=== PATIENT | male | born 1960 | race Caucasian/White ===

== ENCOUNTER 2022-02-19 09:29 | Inpatient (IN) | payer OTHER, SELFPAY ==
[2022-02-19] VITALS (25 sets, daily range): BP systolic 129–168; BP diastolic 56–85; PULSE 81–107; RESP 12–21; TEMP 36.1–39.1; O2SAT 88–100; BMI 29.5
--- NOTE | 2022-02-19 09:50 | EX.PCM.CONCC ---
Assessment & Plan Assessment/Plan (1) Acute respiratory failure with hypoxia: (2) Missed dialysis: (3) Hypertension: PLAN: Plan RECOMMENDATIONS: 1. Consult nephrology for urgent dialysis 2. Attempt removal of BiPAP after fluid removal 3. Consider panculture if unresponsive to fluid removal or develops fever/hypotension 4. Attempt to confirm baseline medications and medical history 5. Walking oximetry prior to discharge IMPRESSIONS: 1. Acute hypoxic respiratory failure Clinical suspicion for flash pulmonary edema secondary to accelerated hypertensive emergency secondary to lack of hemodialysis. Patient is reporting almost 5 days since his last dialysis. Patient does not have significant EKG changes at this time, but does require urgent dialysis secondary to his fluid status. Will attempt to discontinue BiPAP after fluid is removed. If patient were to develop fever, hypotension or was not responsive to fluid removal then empiric antibiotics with vancomycin should be considered given mild erythema at the site. That being said, dialysis site does not appear to be acutely infected in my opinion. CTA of the chest is highly suggestive of fluid overload as an etiology. 2. End-stage renal disease with noncompliance Patient appears to be relatively new to end-stage renal disease. Patient with extended periods between dialysis sessions. Given that he is out of state, echo nephrology will be consulted for dialysis recommendations. No indication for aggressive therapy of hyperkalemia given lack of EKG changes and need for urgent dialysis for other reasons. 3. Hypertension/hyperlipidemia/GERD/history of noncompliance Complicates care, management, recovery and prognosis. Okay to continue baseline medications from my perspective. HPI Consult Data Date of Consult: 02/19/22 HPI Narrative Reason for Consultation: Respiratory failure HPI Narrative: SHRUTHI HERR is a 61 M, with past medical history listed below, who presents as a transfer from [facility] secondary to a need for urgent dialysis. Patient had reportedly presented to their ER complaining of shortness of breath, cough and reported altered mental status. Patient is reportedly from out of state and was supposed to have dialysis in [place]. There were issues preventing this from happening. Patient reported that his last full dialysis was February 14. At the outside facility, patient had an extensive work-up including an EKG showed a sinus tachycardia with left atrial enlargement. Outside ER did document significant hypertension of 170s over 100. Patient was given albuterol, Levaquin, calcium and a 500 cc bolus. Laboratory work-up at the outside facility showed a white blood cell count of 16.2, hemoglobin of 10.5 and platelets of 267. Chemistries were significant for a sodium of 128, chloride of 91, bicarb of 19 and a creatinine of 9.4. Glucose was elevated at 247. ABG showed a pH of 7.29 with a PCO2 of 45 and a PO2 of 83 on BiPAP. COVID testing was negative. Coagulation studies were within normal limits. Patient subsequently had a CTA of the chest showing no PE but diffuse bilateral groundglass opacities with increased intralobular septal thickening and bilateral pleural effusions. This was personally reviewed using the disc provided in transfer. On arrival to the intensive care unit, patient states he felt subjectively much improved compared to previous. Patient was on BiPAP therapy and tolerating this well. Patient is a very poor historian and unable to provide much additional information. Patient reportedly is from out of state and had reportedly arranged for dialysis to be completed in [place]. This did not happen. Patient states since last dialysis was completed almost a week ago. In discussing patient's dialysis, he states he typically gets it Wednesday and Wednesday, but sounded surprised when it was asked if he gets dialysis on Fridays. Patient is not able to provide much information about his home medications outside of the ones provided. Patient was able to tell me that he recently had his dialysis access change secondary to a bloodstream infection. Patient thought that his site looked improved. Review of systems otherwise negative from a constitutional, HEENT, respiratory, cardiovascular, GI, genitourinary, musculoskeletal, skin, neurologic, psychiatric and hematologic system unless stated above. [facility] Medical History Diabetes Dialysis patient Hypertension Kidney disease Non-smoker Home Medications amlodipine 10 mg tablet 10 mg PO DAILY BP 02/19/22 [History Last Taken Unknown] atorvastatin 80 mg tablet 80 mg PO QHS cholesterol 02/19/22 [History Last Taken Unknown] carvedilol 12.5 mg tablet 12.5 mg PO BID BP 02/19/22 [History Last Taken Unknown] citalopram 20 mg tablet 20 mg PO DAILY depression 02/19/22 [History Last Taken Unknown] pantoprazole 40 mg tablet,delayed release 40 mg PO DAILY stomach 02/19/22 [History Last Taken Unknown] Allergy/AdvReac Type Severity Reaction Status Date / Time No Known Allergies Allergy Verified 02/19/22 09:32 Social History Smoking Status: Never smoker ROS ROS Narrative Difficult to obtain a review of systems given patient's poor insight. Review of systems otherwise negative from a constitutional, HEENT, respiratory, cardiovascular, GI, genitourinary, musculoskeletal, skin, neurologic, psychiatric and hematologic system unless stated above. Physical Exam Const alert, oriented x3 and no apparent distress Constitutional Narrative: On BiPAP. Appears older than stated age. General Appearance: cooperative and well developed; Negative for lethargic or ill appearing HEENT normocephalic, head/scalp atraumatic and moist oral mucous membranes Eyes PERRL and EOMs intact bilaterally Eyes Narrative: Slight scleral injection noted Neck full ROM and no lymphadenopathy Chest inspection of chest normal Chest Narrative: Right dialysis access subclavian. Slight erythema without exudate or purulence Resp normal respiratory effort and no use of accessory muscles Resp Narrative: On BiPAP during my evaluation Effort and Inspection: tachypneic Auscultation: rales; Negative for rhonchi or wheezes Percussion: Negative for dullness Cardio regular rate, regular rhythm, S1 normal heart sound, S2 normal heart sound, no murmurs, no rub and no gallops GI normal to inspection, nondistended, normoactive bowel sounds no CVA tenderness Extremity no clubbing, cyanosis or edema Skin no rashes or lesions noted Neuro oriented x3, CN's II-XII intact bilaterally, moves all extremities and no focal motor deficits Psych cooperative and affect normal Medical Records Data Attestation: I reviewed the patient's medical records Medical records narrative: Approximately 40 pages of documentation were reviewed from outside facility. Summarized in HPI Lab / Micro Data Attestation: I reviewed the patient's lab results. Lab results narrative: Repeat labs have been ordered Labs: COVID and influenza negative Rhythm Strip Rhythm Strip: Sinus Rhythm Rate: 81 Ectopy: None Charges/Coding Visit Charges Inpatient E&M: 39854 Init Hosp L3
[2022-02-19 11:02] LABS: Absolute Lymphocyte Count 1.36 X10^3/uL (0.83-4.51); Absolute Neutrophil Count 5.7 X10^3/uL (2.0-7.7); Basophil# 0.03 X10^3/uL; Basophil% 0.4 % (0-1); Eosinophil# 0.01 X10^3/uL; Eosinophils% 0.1 % (0-5); Hematocrit 24.8 % (40-54); Hemoglobin 7.8 g/dL (13.0-16.5); Lymphocyte # 1.36 X10^3/ul (0.83-4.51); Lymphocyte % 16.4 % (19-41); Mean Corp Hgb Conc 31.5 g/dL (32-36); Mean Corpuscular Hgb 29.1 pg (27.0-32.0); Mean Corpuscular Volume 92.5 fL (80-94); Mean Platelet Vol. 8.9 fl (6.2-12.0); Monocyte% 14.4 % (0-10); NRBC Flagged by Analyzer 0 % (0-5); Neutrophil # 5.65 X10^3/uL (2.7-7.7); Platelet Count 163 K/mm3 (150-450); RBC Distribution Width CV 14.9 % (11.6-14.6); RBC Distribution Width SD 50.5 fl (35.1-43.9); Red Blood Count 2.68 M/mm3 (4.6-6.2); White Blood Count 8.3 K/mm3 (4.4-11.0)
--- NOTE | 2022-02-19 11:22 | PCM.CONS.R ---
Assessment & Plan Assessment/Plan (1) ESRD (end stage renal disease): (2) Acute respiratory failure with hypoxia: (3) Hypertension: PLAN: Plan Patient presented to [place] emergency room with complaints of shortness of breath and needing dialysis. He has a history of end-stage renal disease on dialysis Wednesday, last dialyzed Wednesday. Lab work in the emergency room showed a potassium of 5.0, white count 16.2, creatinine 9.4, bicarb 19. Patient was initially placed on BiPAP. His breathing has improved he is now on nasal cannula. CTA of chest showing bilateral pleural effusions and concerning for possible pneumonia; patient received Levaquin. Patient was transferred to [facility] for dialysis. Patient has mild hyperkalemia, mild metabolic acidosis and hypervolemia likely from missing dialysis. We will plan for dialysis today over 4 hours on 2K bath and attempt fluid removal as patient/blood pressure tolerates. Patient does report that recently he had a tunneled catheter line infection, tunneled catheter was removed and new tunneled catheter has been placed. Patient reports he has been receiving antibiotic at his home dialysis unit postdialysis, he does not recall name of antibiotic that he has been receiving. We will give 1 dose Vanco post-dialysis today and draw blood cultures from tunneled HD catheter. Home medications are being ordered. Blood pressures acceptable. We will evaluate tomorrow for dialysis needs. Further orders forthcoming as hospitalization evolves. HPI Consult Data Date of Consult: 02/19/22 HPI Narrative HPI Narrative: SHRUTHI HERR, is a 61 M with past medical history significant for diabetes mellitus type 2, hypertension and end-stage renal disease who is on hemodialysis support who presented to [place] emergency room this morning with complaints of shortness of breath and the need for dialysis. Patient lives out of state in [place]. He receives dialysis on a Wednesday schedule in [place]. Per patient, his last dialysis was on Wednesday. He has been visiting family in [place]. Per patient he thought dialysis was arranged in [place] however he has not had dialysis since Wednesday at his home unit. Patient denies any recent fever or chills. Denies any nausea or vomiting. Does complain of shortness of breath with cough. [facility] Medical History Diabetes Dialysis patient Hypertension Kidney disease Non-smoker Home Medications amlodipine 10 mg tablet 10 mg PO DAILY BP 02/19/22 [History Last Taken Unknown] atorvastatin 80 mg tablet 80 mg PO QHS cholesterol 02/19/22 [History Last Taken Unknown] carvedilol 12.5 mg tablet 12.5 mg PO BID BP 02/19/22 [History Last Taken Unknown] citalopram 20 mg tablet 20 mg PO DAILY depression 02/19/22 [History Last Taken Unknown] pantoprazole 40 mg tablet,delayed release 40 mg PO DAILY stomach 02/19/22 [History Last Taken Unknown] Allergy/AdvReac Type Severity Reaction Status Date / Time No Known Allergies Allergy Verified 02/19/22 09:32 Social History Smoking Status: Never smoker ROS ROS Narrative As per past medical history and HPI Physical Exam Narrative Const: Alert and oriented x3, in no apparent distress HEENT: Pupils equal round reactive to light, oral mucosa moist Cardio: S1, S2, RRR Respiratory: Lung sounds clear anteriorly, currently on nasal cannula. No audible wheezing. Faint rales posteriorly Extremities: No pitting edema to right leg. Left leg prosthesis in place Tunneled HD catheter right chest, dressing clean, dry and intact Lab / Micro Data Result Diagrams: 02/19/22 10:55 02/19/22 10:55 Labs: Laboratory Results - last 24 hr 02/19/22 10:55: WBC 8.3, RBC 2.68 L, Hgb 7.8 L, Hct 24.8 L, MCV 92.5, MCH 29.1, MCHC 31.5 L, RDW Std Deviation 50.5 H, RDW Coeff of Jeffery 14.9 H, Plt Count 163, MPV 8.9, Immature Gran % (Auto) 0.700, Neut % (Auto) 68.0, Lymph % (Auto) 16.4 L, [place] % (Auto) 14.4 H, Eos % (Auto) 0.1, Baso % (Auto) 0.4, Absolute Neuts (auto) 5.7, Absolute Lymphs (auto) 1.36, Nucleated RBC % 0 Rhythm Strip Rhythm Strip: Sinus Rhythm Rate: 81 Ectopy: None
[2022-02-19 11:28] LABS: Albumin, Serum 2.5 g/dL (3.2-5.0); BUN 76 mg/dL (7-18); BUN/Creat Ratio 8.5 RATIO (10-20); Calcium,Total 7.7 mg/dL (8.5-10.1); Chloride 98 mmol/L (98-107); Creatinine, Serum 8.94 mg/dL (0.70-1.30); EST Glomerular Filtration Rate 6 mL/min (>60); Est Glom Filt Rate - Afr Amer 8 mL/min (>60); Estimated Creatinine Clearance 9.28 ml/min; Glucose 128 mg/dL (74-106); Phosphorus 6.9 mg/dL (2.5-4.9); Potassium 4.4 mmol/L (3.5-5.1); Sodium Level 131 mmol/L (136-145)
--- NOTE | 2022-02-19 12:09 | HP.PCM.HOS_ITS ---
HPI - General General Date of Admission: 02/19/22 Date of Service: 02/19/22 Chief Complaint: SOB- 2 days HPI Narrative SHRUTHI HERR, is a 61 M who presents with the above. Patient is visiting from [place]. He has ESRD on hemodialysis(). Patient missed his dialysis on Wednesday. He is due to go back to [place] today and for get that he will will be okay missing a couple of days of dialysis. He however became very short of breath and felt wheezy yesterday. He admits to a cough and was said to be confused. Patient was supposed to be set-up in [place] for dialysis but never went through with it. He last had his full dialysis on February 14. In [facility], patient's blood pressure was elevated over 170s. EKG showed sinus tachycardia with left atrial enlargement. His sodium was 128, potassium 5, bicarb 19, chloride 91, creatinine 9.4. Blood sugar was 247. ABG showed pH of 7.29, PCO2 45, PO2 83. COVID test was negative. CT of the chest was negative for acute PE. It showed diffuse bilateral groundglass opacities with increased intralobular septal thickening and pleural effusion. Patient received Kayexalate, insulin, calcium gluconate. He was managed on BiPAP continuously. Patient was transferred to the [facility] ICU. In the ICU, he was found to have improved and saturating well on 4 L of oxygen. Patient denied any fever or chills or chest pain or dizziness or palpitation. His vitals showed blood pressure 135/68, heart rate 89, temperature 90 7F, SPO2 was 92% on 3 L of oxygen. His WBC count was 8.3, hemoglobin 7.8, platelet count 163, sodium was 131, potassium 4.4, chloride 98, bicarbonate 20, BUN 76, creatinine 8.94, phosphorus 6.9, albumin 2.5 Nephrology was consulted and the nephrology SERVER SOFTWARE ENGINEER found out that patient had a recent line infection and was supposed to be on cefazolin 2 g IV after dialysis on Tuesdays and and 3 g cefazolin after dialysis on Wednesday. [facility] Medical History Diabetes Dialysis patient Hypertension Kidney disease Non-smoker Home Medications amlodipine 10 mg tablet 10 mg PO DAILY BP 02/19/22 [History Last Taken Unknown] atorvastatin 80 mg tablet 80 mg PO QHS cholesterol 02/19/22 [History Last Taken Unknown] carvedilol 12.5 mg tablet 12.5 mg PO BID BP 02/19/22 [History Last Taken Unknown] citalopram 20 mg tablet 20 mg PO DAILY depression 02/19/22 [History Last Taken Unknown] pantoprazole 40 mg tablet,delayed release 40 mg PO DAILY stomach 02/19/22 [History Last Taken Unknown] Allergy/AdvReac Type Severity Reaction Status Date / Time No Known Allergies Allergy Verified 02/19/22 09:32 Family History (Updated 02/19/22 @ 12:[address] Breanna Neal MD) Mother No problems noted. Father Colon cancer Surgical History (Updated 02/19/22 @ 12:[address] Breanna Neal MD) S/P BKA (below knee amputation) unilateral Social History (Updated 02/19/22 @ 12:[address] Breanna Neal MD) household members: spouse Smoking Status: Never smoker alcohol intake: current substance use type: does not use ROS ROS Narrative Constitutional: Reports: Malaise, Weakness, Fatigue. Denies: Anorexia, Chills, Fever, Night Sweats, Weight Change Eyes: Denies: Blurred vision, Cataracts, Conjunctivae Inflammation, Pain, Redness, Vision Change HEENT: Denies: Difficulty Hearing, Difficulty Swallowing, Head Aches, Hearing Changes, Sinus Congestion, Sinus Drainage Cardiovascular: Denies: Chest Pain, Orthopnea, Palpitations Respiratory: Admits to cough, Shortness of breath at rest, Sputum production Gastrointestinal: Denies: Abdominal Pain, Nausea, Vomiting Genitourinary: Denies: Dysuria Musculoskeletal: Denies: Joint Pain, Joint stiffness, Joint swelling, Joint Tenderness Skin: Denies: Rash, Wounds Neurological: Denies: Numbness, Tingling, Focal weakness Vital Signs Vital Signs Vital Signs: 02/19/22 09:56 02/19/22 09:19 02/19/22 09:19 Temperature 98.1 F Temperature Source Temporal Pulse Rate 83 81 Respiratory Rate 21 H Respiratory Effort Respiratory Depth Respiratory Pattern Tachypnea Blood Pressure 140/85 H Blood Pressure [BP] Blood Pressure Mean 103 Blood Pressure Mean [BP] Blood Pressure Source Monitor Blood Pressure Source [BP] Blood Pressure Position Semi-Fowlers Blood Pressure Position [BP] Blood Pressure Location Left Arm Blood Pressure Location [BP] Pulse Ox 100 100 Oxygen Delivery Method Bi-pap Oxygen Flow Rate (L/min) Fraction of Inspired Oxygen (FIO2) 50 30 02/19/22 09:30 02/19/22 09:45 02/19/22 10:00 Temperature Temperature Source Pulse Rate 87 84 82 Respiratory Rate 21 H 18 18 Respiratory Effort Respiratory Depth Respiratory Pattern Blood Pressure 148/76 H 140/69 H 136/70 H Blood Pressure [BP] Blood Pressure Mean 100 92 92 Blood Pressure Mean [BP] Blood Pressure Source Monitor Monitor Monitor Blood Pressure Source [BP] Blood Pressure Position Semi-Fowlers Semi-Fowlers Semi-Fowlers Blood Pressure Position [BP] Blood Pressure Location Left Arm Left Arm Left Arm Blood Pressure Location [BP] Pulse Ox 91 92 94 Oxygen Delivery Method Nasal Cannula Nasal Cannula Nasal Cannula Oxygen Flow Rate (L/min) 3 4 4 Fraction of Inspired Oxygen (FIO2) 02/19/22 10:00 02/19/22 10:30 02/19/22 09:20 Temperature Temperature Source Pulse Rate 81 Respiratory Rate 16 Respiratory Effort Normal Non-Labored Respiratory Depth Normal Respiratory Pattern Normal Blood Pressure Blood Pressure [BP] 137/68 H Blood Pressure Mean Blood Pressure Mean [BP] 91 Blood Pressure Source Blood Pressure Source [BP] Monitor Blood Pressure Position Blood Pressure Position [BP] Semi-Fowlers Blood Pressure Location Blood Pressure Location [BP] Left Arm Pulse Ox 94 94 Oxygen Delivery Method Nasal Cannula Nasal Cannula Nasal Cannula Oxygen Flow Rate (L/min) 4 3 3 Fraction of Inspired Oxygen (FIO2) 02/19/22 11:00 02/19/22 11:06 Temperature Temperature Source Pulse Rate 82 81 Respiratory Rate 16 Respiratory Effort Respiratory Depth Respiratory Pattern Blood Pressure Blood Pressure [BP] 149/72 H Blood Pressure Mean Blood Pressure Mean [BP] 97 Blood Pressure Source Blood Pressure Source [BP] Monitor Blood Pressure Position Blood Pressure Position [BP] Semi-Fowlers Blood Pressure Location Blood Pressure Location [BP] Left Arm Pulse Ox 92 Oxygen Delivery Method Nasal Cannula Oxygen Flow Rate (L/min) 3 Fraction of Inspired Oxygen (FIO2) Weight Weight: 98.8 kg Body Mass Index (BMI) 29.5 Physical Exam Narrative Physical exam: General: Alert, Oriented x3, Cooperative, appears frail, older than stated age HEENT: Atraumatic Oral: Moist Mucosa Neck: Supple Lungs: Diminished to auscultation, right-sided tunneled dialysis catheter Cardiovascular: HS I+II, regular, no murmurs Abdomen: Bowel Sounds Present, Soft, Non Tender Extremities: No sreedhar, left BKA Skin: No rashes, No breakdown Neurological: Grossly intact Psych/Mental Status: Appropriate Results Lab / Micro Data Result Diagrams: 02/19/22 10:55 02/19/22 10:55 Labs: Laboratory Results - last 24 hr 02/19/22 10:55: WBC 8.3, RBC 2.68 L, Hgb 7.8 L, Hct 24.8 L, MCV 92.5, MCH 29.1, MCHC 31.5 L, RDW Std Deviation 50.5 H, RDW Coeff of Jeffery 14.9 H, Plt Count 163, MPV 8.9, Immature Gran % (Auto) 0.700, Neut % (Auto) 68.0, Lymph % (Auto) 16.4 L , [place] % (Auto) 14.4 H, Eos % (Auto) 0.1, Baso % (Auto) 0.4, Absolute Neuts (auto) 5.7, Absolute Lymphs (auto) 1.36, Nucleated RBC % 0 02/19/22 10:55: Sodium 131 L, Potassium 4.4, Chloride 98, Carbon Dioxide 20.0 L, BUN 76 H, Creatinine 8.94 H*, Estim Creat Clear Calc 9.28, Est GFR (MDRD) Af Amer 8 L, Est GFR (MDRD) Non-Af 6 L, BUN/Creatinine Ratio 8.5 L, Glucose 128 H, Calcium 7.7 L, Phosphorus 6.9 H, Albumin 2.5 L Rhythm Strip Rhythm Strip: Sinus Rhythm Rate: 81 Ectopy: None Assessment & Plan Assessment/Plan (1) ESRD (end stage renal disease): (2) Acute respiratory failure with hypoxia: (3) Hypertension: (4) Missed dialysis: PLAN: Plan 1. Acute hypoxic respiratory failure secondary to fluid overload secondary to missed dialysis Patient presented to [facility] saturating 70% on room air. Improved to 95% on BiPAP Patient was found to be on 4 L of oxygen by the time he got here He will be getting dialysis today Breathing treatments as needed, encourage use of incentive spirometer 2. ESRD on hemodialysis?Wednesday??Wednesday, missed dialysis Dialysis today, nephrology consulted 3. Recent line infection; patient supposed to be on cefazolin 2 g on Wednesday and and 3 g after Wednesday dialysis WBC count was elevated at 16.0; he received one dose of IV levaquin 4. Hypertension, controlled, continue on amlodipine, carvedilol 5. Hyperlipidemia, continue on statin 6. Anxiety/depression, continue on celexa 7. DVT PPx- Heparin SC 8. GI ppx- continue home PPI Charges/Coding Visit Charges Inpatient E&M: 72034 Init Hosp L3
[2022-02-19] MEDS: 0.9% Saline Lock 10 ML Syringe IV ×3 (13:25→20:55)
[2022-02-19] MEDS: Heparin Injection (Vial) 5,000 UNIT/ML VIAL 5000 UNIT SC ×2 (13:25→20:55)
[2022-02-19] MEDS: Ipratropium/Albuterol Sulfate 3 ML AMPUL.NEB INHALATION ×2 (15:28→19:08)
[2022-02-19] MEDS: Heparin 10,000 UNITS/10 ML Vial 3200 UNITS IV (17:55)
[2022-02-19] MEDS: Cefazolin 2 GM in 0.9% Normal Saline 100 ML IV (17:55)
--- NOTE | 2022-02-19 18:10 | RAD_ITS ---
EXAM: XR CHEST, 1 VIEW CLINICAL INDICATION: SOB TECHNIQUE: Frontal view of the chest. This report was created using [employer] report generation technology. COMPARISON: None. FINDINGS: LUNGS AND PLEURAL SPACES: There is right upper and lower lobe airspace disease which may represent pneumonia. No pneumothorax. No effusion. HEART: Unremarkable. Cardiac silhouette not enlarged. MEDIASTINUM: Central airways and mediastinal contour are unremarkable. BONES/JOINTS: Unremarkable. SOFT TISSUES: Unremarkable. TUBES, LINES AND DEVICES: Right central catheter is in place with the distal tip overlying the superior cava. RAD/Chest 1 View (Portable) IMPRESSION: 1. Right-sided airspace disease compatible with pneumonia. 2. Right central venous catheter in good position. Electronically Signed: Brayna Malik MD at 23:01 EDT ,
--- NOTE | 2022-02-19 18:47 | DIALYSIS ---
Hemodialysis x 3.5hrs UF -3500mL removed. Pt stable and tolerated tx . Report to AVIVA Ramsay
[2022-02-19] MEDS: Acetaminophen 325 MG Tablet 650 MG PO (20:55)
[2022-02-19] MEDS: Atorvastatin Calcium 80 MG Tablet PO (20:55)
[2022-02-19] MEDS: Carvedilol 12.5 MG Tablet PO (20:58)
--- NOTE | 2022-02-19 22:05 | PCM.RX.CS ---
Consult Pharmacy has been consulted to manage selected antiobiotic: Vancomycin Type of Consult: New start Suspected Infection: Other Prior Doses of Antibiotics Received/Current Regimen: Medications Vancomycin HCl 2,000 mg/ (Sodium Chloride) 540 mls @ 250 mls/hr IV X1 ONE Stop: 02/19/22 23:09 Last Admin: 02/19/22 21:06 Dose: 250 mls/hr Labs: Sodium 131 mmol/L (136-145) L 02/19/22 10:55 Potassium 4.4 mmol/L (3.5-5.1) 02/19/22 10:55 Chloride 98 mmol/L (98-107) 02/19/22 10:55 Carbon Dioxide 20.0 mmol/L (21.0-32.0) L 02/19/22 10:55 BUN 76 mg/dL (7-18) H 02/19/22 10:55 Creatinine 8.94 mg/dL (0.70-1.30) H* 02/19/22 10:55 Est GFR (MDRD) Af Amer 8 mL/min (>60) L 02/19/22 10:55 Est GFR (MDRD) Non-Af 6 mL/min (>60) L 02/19/22 10:55 BUN/Creatinine Ratio 8.5 RATIO (10-20) L 02/19/22 10:55 Glucose 128 mg/dL (74-106) H 02/19/22 10:55 Weight used for dosin.8 kg Estimated Creatinine Clearance: 9.28 Goal Trough: 15-20 mcg/mL Pharmacy Plan for Drug Dosing: An initial vancomycin IV dose of 2000mg was given. Subsequent dosing will be timed in relation to patient's dialysis sessions and based on pre-dialysis levels. Pharmacy Service will continue to monitor and adjust dosing as required.
[2022-02-20] VITALS (14 sets, daily range): BP systolic 119–136; BP diastolic 54–92; PULSE 69–84; RESP 11–18; TEMP 36.6–37.3; O2SAT 92–100
[2022-02-20 04:00] LABS: Absolute Neutrophil Count 3.4 X10^3/uL (2.0-7.7); Basophil# 0.03 X10^3/uL; Basophil% 0.5 % (0-1); Eosinophil# 0.02 X10^3/uL; Eosinophils% 0.3 % (0-5); Hemoglobin 7.1 g/dL (13.0-16.5); Lymphocyte % 24.5 % (19-41); Mean Corp Hgb Conc 32.3 g/dL (32-36); Mean Corpuscular Hgb 29.7 pg (27.0-32.0); Mean Corpuscular Volume 92.1 fL (80-94); Mean Platelet Vol. 8.8 fl (6.2-12.0); Monocyte# 1.09 X10^3/uL; Monocyte% 17.8 % (0-10); NRBC Flagged by Analyzer 0 % (0-5); Neutrophil # 3.42 X10^3/uL (2.7-7.7); Neutrophil % 55.8 % (47-70); Platelet Count 149 K/mm3 (150-450); RBC Distribution Width SD 50.4 fl (35.1-43.9); Red Blood Count 2.39 M/mm3 (4.6-6.2); White Blood Count 6.1 K/mm3 (4.4-11.0)
[2022-02-20 04:34] LABS: ALB/GLOB Ratio 0.6 RATIO (0.9-2.4); AST(SGOT) 16 U/L (15-37); Alanine Aminotransfer ALT/SGPT < 6 U/L (16-61); Albumin, Serum 2.2 g/dL (3.2-5.0); Alkaline Phosphatase 65 U/L (45-117); Anion Gap 10 (5-15); BUN 46 mg/dL (7-18); BUN/Creat Ratio 7.6 RATIO (10-20); Calcium,Total 7.6 mg/dL (8.5-10.1); Chloride 98 mmol/L (98-107); Creatinine, Serum 6.08 mg/dL (0.70-1.30); EST Glomerular Filtration Rate 10 mL/min (>60); Est Glom Filt Rate - Afr Amer 12 mL/min (>60); Estimated Creatinine Clearance 13.65 ml/min; Globulin 3.6 g/dL (2.2-4.2); Glucose 179 mg/dL (74-106); Potassium 3.7 mmol/L (3.5-5.1); Protein, Total 5.8 g/dL (6.4-8.2); Sodium Level 134 mmol/L (136-145)
[2022-02-20] MEDS: Heparin Injection (Vial) 5,000 UNIT/ML VIAL 5000 UNIT SC ×3 (05:18→21:32)
[2022-02-20] MEDS: 0.9% Saline Lock 10 ML Syringe IV ×3 (05:18→21:32)
--- NOTE | 2022-02-20 05:48 | PCA ---
patient weight less this A.M prior shift weighted with prosthetic.
--- NOTE | 2022-02-20 06:52 | PCM.PN.INT ---
Assessment & Plan Assessment/Plan (1) Acute respiratory failure with hypoxia: (2) Missed dialysis: (3) Hypertension: PLAN: Plan RECOMMENDATIONS: 1. Defer to nephrology on repeat dialysis 2. Wean supplemental oxygen as tolerated 3. Continue broad-spectrum antibiotics pending culture results 4. Attempt to confirm baseline medications and medical history 5. Okay to leave the intensive care unit from my perspective IMPRESSIONS: 1. Acute hypoxic respiratory failure Clinical suspicion for flash pulmonary edema secondary to accelerated hypertensive emergency secondary to lack of hemodialysis. Patient is reporting almost 5 days since his last dialysis. Patient tolerated significant fluid removal yesterday and is no longer requiring BiPAP. However, patient does have significant infiltrates and spiked a fever to 39.1 ?C overnight. Antibiotics have been initiated. Cultures are currently pending. Cannot exclude a concomitant pneumonia, but patient tends to minimize significance. 2. End-stage renal disease with noncompliance Patient appears to be relatively new to end-stage renal disease. Patient with extended periods between dialysis sessions. Given that he is out of state, [facility] will be consulted for dialysis recommendations. No indication for aggressive therapy of hyperkalemia given lack of EKG changes and need for urgent dialysis for other reasons. Defer to nephrology on further dialysis sessions 3. Hypertension/hyperlipidemia/GERD/history of noncompliance Complicates care, management, recovery and prognosis. Okay to continue baseline medications from my perspective. Subjective Subjective Patient was able to tolerate hemodialysis yesterday with fluid removal. However, overnight patient became febrile and subsequently had another blood culture and initiation of antibiotics. Chest x-ray shows a significant right-sided infiltrate. Patient is reporting no new symptomatology and feels that he can make it back to [place] later today. Patient did reiterate that he does not use supplemental oxygen at baseline Objective Data Objective Data Vital Signs: Vital Signs Temp Pulse Resp BP Pulse Ox O2 Del Method O2 Flow Rate 37.2 C 75 14 136/63 H 96 Nasal Cannula 4 02/20/22 04:00 02/20/22 06:00 02/20/22 06:00 02/20/22 06:00 02/20/22 06:00 02/20/22 06:00 02/20/22 06:00 FiO2 50 02/19/22 09:19 Oxygen Flow Rate (L/min) 4 Oxygen Delivery Method Nasal Cannula Weight: 90.3 kg Body Mass Index (BMI) 29.5 Intake & Output: Intake and Output for Last 24 Hours 02/18/22 02/19/22 02/20/22 23:59 23:59 23:59 Intake Total 1450 / 1450 50 / 50 Output Total 4025 / 4025 Balance -2575 / -2575 50 / 50 Lab / Micro Data Attestation: I reviewed the patient's lab results. Result Diagrams: 02/20/22 03:45 02/20/22 03:45 Labs: Laboratory Results - last 24 hr 02/19/22 10:55: WBC 8.3, RBC 2.68 L, Hgb 7.8 L, Hct 24.8 L, MCV 92.5, MCH 29.1, MCHC 31.5 L, RDW Std Deviation 50.5 H, RDW Coeff of Jeffery 14.9 H, Plt Count 163, MPV 8.9, Immature Gran % (Auto) 0.700, Neut % (Auto) 68.0, Lymph % (Auto) 16.4 L, [place] % (Auto) 14.4 H, Eos % (Auto) 0.1, Baso % (Auto) 0.4, Absolute Neuts (auto) 5.7, Absolute Lymphs (auto) 1.36, Nucleated RBC % 0 02/19/22 10:55: Sodium 131 L, Potassium 4.4, Chloride 98, Carbon Dioxide 20.0 L, BUN 76 H, Creatinine 8.94 H*, Estim Creat Clear Calc 9.28, Est GFR (MDRD) Af Amer 8 L, Est GFR (MDRD) Non-Af 6 L, BUN/Creatinine Ratio 8.5 L, Glucose 128 H, Calcium 7.7 L, Phosphorus 6.9 H, Albumin 2.5 L 02/20/22 03:45: WBC 6.1, RBC 2.39 L, Hgb 7.1 L, Hct 22.0 L, MCV 92.1, MCH 29.7, MCHC 32.3, RDW Std Deviation 50.4 H, RDW Coeff of Jeffery 15.0 H, Plt Count 149 L, MPV 8.8, Immature Gran % (Auto) 1.100 H, Neut % (Auto) 55.8, Lymph % (Auto) 24.5, [place] % (Auto) 17.8 H, Eos % (Auto) 0.3, Baso % (Auto) 0.5, Absolute Neuts (auto) 3.4, Absolute Lymphs (auto) 1.50, Nucleated RBC % 0 02/20/22 03:45: Sodium 134 L, Potassium 3.7, Chloride 98, Carbon Dioxide 26.0, Anion Gap 10, BUN 46 H, Creatinine 6.08 H, Estim Creat Clear Calc 13.65, Est GFR (MDRD) Af Amer 12 L, Est GFR (MDRD) Non-Af 10 L, BUN/Creatinine Ratio 7.6 L, Glucose 179 H, Calcium 7.6 L, Total Bilirubin 0.40, AST 16, ALT < 6 L, Alkaline Phosphatase 65, Total Protein 5.8 L, Albumin 2.2 L, Globulin 3.6, Albumin/Globulin Ratio 0.6 L Radiography Diagnostic Testing: Radiology Impression Chest X-Ray 02/19/22 18:10 IMPRESSION: 1. Right-sided airspace disease compatible with pneumonia. 2. Right central venous catheter in good position. Electronically Signed: Brayan Malik MD at 23:01 EDT , Rhythm Strip Rhythm Strip: Sinus Rhythm Rate: 71 Ectopy: None Physical Exam Const alert, oriented x3 and no apparent distress Constitutional Narrative: On nasal cannula. Appears older than stated age. General Appearance: cooperative and well developed; Negative for lethargic or ill appearing HEENT normocephalic, head/scalp atraumatic and moist oral mucous membranes Eyes PERRL and EOMs intact bilaterally Eyes Narrative: Slight scleral injection noted Neck full ROM and no lymphadenopathy Chest inspection of chest normal Chest Narrative: Right dialysis access subclavian. Slight erythema without exudate or purulence Resp normal respiratory effort and no use of accessory muscles Resp Narrative: Respiratory status significantly improved from yesterday Auscultation: rhonchi right upper and right lower; Negative for rales or wheezes Percussion: Negative for dullness Cardio regular rate, regular rhythm, S1 normal heart sound, S2 normal heart sound, no murmurs, no rub and no gallops GI normal to inspection, nondistended, normoactive bowel sounds no CVA tenderness Extremity no clubbing, cyanosis or edema Extremity Narrative: Right BKA Skin no rashes or lesions noted Neuro oriented x3, CN's II-XII intact bilaterally, moves all extremities and no focal motor deficits Psych cooperative and affect normal Charges/Coding Visit Charges Inpatient E&M: 10063 Subs Hosp L3
[2022-02-20] MEDS: Ipratropium/Albuterol Sulfate 3 ML AMPUL.NEB INHALATION (07:02)
--- NOTE | 2022-02-20 08:02 | PCM.PN.HOSP ---
Subjective Subjective Follow-up on acute respiratory failure/missed dialysis/line infection: Patient was seen and examined. Overnight he was febrile, blood cultures were taken again, started on broad-spectrum antibiotics -vancomycin and Zosyn. Patient expressed frustration at being in the hospital. He wants to be discharged home Objective Data Objective Data Vital Signs: Vital Signs Temp Pulse Resp BP Pulse Ox O2 Del Method O2 Flow Rate 98.9 F 77 13 130/60 H 93 Nasal Cannula 1 02/20/22 04:00 02/20/22 07:03 02/20/22 07:03 02/20/22 07:00 02/20/22 07:03 02/20/22 07:03 02/20/22 07:03 FiO2 50 02/19/22 09:19 Oxygen Flow Rate (L/min) 1 Oxygen Delivery Method Nasal Cannula Weight: 90.3 kg Body Mass Index (BMI) 29.5 Intake & Output: Intake and Output for Last 24 Hours 02/18/22 02/19/22 02/20/22 23:59 23:59 23:59 Intake Total 1450 / 1450 50 / 50 Output Total 4025 / 4025 Balance -2575 / -2575 50 / 50 Lab / Micro Data Result Diagrams: 02/20/22 03:45 02/20/22 03:45 Labs: Laboratory Results - last 24 hr 02/19/22 10:55: WBC 8.3, RBC 2.68 L, Hgb 7.8 L, Hct 24.8 L, MCV 92.5, MCH 29.1, MCHC 31.5 L, RDW Std Deviation 50.5 H, RDW Coeff of Jeffery 14.9 H, Plt Count 163, MPV 8.9, Immature Gran % (Auto) 0.700, Neut % (Auto) 68.0, Lymph % (Auto) 16.4 L, [place] % (Auto) 14.4 H, Eos % (Auto) 0.1, Baso % (Auto) 0.4, Absolute Neuts (auto) 5.7, Absolute Lymphs (auto) 1.36, Nucleated RBC % 0 02/19/22 10:55: Sodium 131 L, Potassium 4.4, Chloride 98, Carbon Dioxide 20.0 L, BUN 76 H, Creatinine 8.94 H*, Estim Creat Clear Calc 9.28, Est GFR (MDRD) Af Amer 8 L, Est GFR (MDRD) Non-Af 6 L, BUN/Creatinine Ratio 8.5 L, Glucose 128 H, Calcium 7.7 L, Phosphorus 6.9 H, Albumin 2.5 L 02/20/22 03:45: WBC 6.1, RBC 2.39 L, Hgb 7.1 L, Hct 22.0 L, MCV 92.1, MCH 29.7, MCHC 32.3, RDW Std Deviation 50.4 H, RDW Coeff of Jeffery 15.0 H, Plt Count 149 L, MPV 8.8, Immature Gran % (Auto) 1.100 H, Neut % (Auto) 55.8, Lymph % (Auto) 24.5, [place] % (Auto) 17.8 H, Eos % (Auto) 0.3, Baso % (Auto) 0.5, Absolute Neuts (auto) 3.4, Absolute Lymphs (auto) 1.50, Nucleated RBC % 0 02/20/22 03:45: Sodium 134 L, Potassium 3.7, Chloride 98, Carbon Dioxide 26.0, Anion Gap 10, BUN 46 H, Creatinine 6.08 H, Estim Creat Clear Calc 13.65, Est GFR (MDRD) Af Amer 12 L, Est GFR (MDRD) Non-Af 10 L, BUN/Creatinine Ratio 7.6 L, Glucose 179 H, Calcium 7.6 L, Total Bilirubin 0.40, AST 16, ALT < 6 L, Alkaline Phosphatase 65, Total Protein 5.8 L, Albumin 2.2 L, Globulin 3.6, Albumin/Globulin Ratio 0.6 L Radiography Diagnostic Testing: Radiology Impression Chest X-Ray 02/19/22 18:10 IMPRESSION: 1. Right-sided airspace disease compatible with pneumonia. 2. Right central venous catheter in good position. Electronically Signed: Brayan Malik MD at 23:01 EDT , Rhythm Strip Rhythm Strip: Sinus Rhythm Rate: 71 Ectopy: None Physical Exam Narrative Physical exam: General: Alert, Oriented x3, Cooperative, appears frail, older than stated age, on 3 L of oxygen HEENT: Atraumatic Oral: Moist Mucosa Neck: Supple Lungs: Diminished to auscultation, right-sided tunneled dialysis catheter Cardiovascular: HS I+II, regular, no murmurs Abdomen: Bowel Sounds Present, Soft, Non Tender Extremities: No edema, left BKA Skin: No rashes, No breakdown Neurological: Grossly intact Psych/Mental Status: Appropriate Assessment & Plan Assessment/Plan (1) ESRD (end stage renal disease): (2) Acute respiratory failure with hypoxia: (3) Hypertension: (4) Missed dialysis: PLAN: Plan 1. Acute hypoxic respiratory failure secondary to fluid overload secondary to missed dialysis, improved Patient currently on 4 L of oxygen; off BiPAP soon after he was admitted Continue to wean off for SPO2 more than 94% Continue breathing treatments as needed, encourage use of incentive spirometer 2. ESRD on hemodialysis?Wednesday??Wednesday, missed dialysis Patient was dialyzed yesterday, nephrology following, unclear if dialysis will be repeated today 3. Pneumonia, questionable new versus old, patient is from [place], no medical records available History of recent line infection; patient supposed to be on cefazolin 2 g on Wednesday and and 3 g after Wednesday dialysis WBC count is 6.1 today. Patient started on vancomycin and Zosyn Follow-up on blood cultures, ID consult 4. Anemia, drop in hemoglobin from 7.8 on admission to 7.1, unclear patient's baseline as he is from out of state We will repeat H&H, check stool for FOBT, iron stores 5. Hypertension, controlled Continue on amlodipine, carvedilol 6. Hyperlipidemia, continue on statin 7. Anxiety/depression, continue on Celexa 8. DVT PPx-SCDs in light of anemia of unclear etiology 9. GI ppx- continue home PPI Charges/Coding Visit Charges Inpatient E&M: 47643 Subs Hosp L2
[2022-02-20 08:34] LABS: Ferritin 263 ng/mL (26-388); Iron 17 ug/dL (65-175); Iron Binding Capacity,Total 160 ug/dL (250-450); PERCENT IRON SATURATION 10.6 % (15.0-55.0)
[2022-02-20] MEDS: Pantoprazole Sodium 40 MG Tablet PO (08:50)
[2022-02-20] MEDS: amLODIPine 10 MG Tablet PO (08:50)
[2022-02-20] MEDS: Carvedilol 12.5 MG Tablet PO ×2 (08:51→21:32)
[2022-02-20] MEDS: Citalopram 20 MG Tablet PO (08:51)
--- NOTE | 2022-02-20 11:10 | CASEMGMT ---
RN CM CELL INSTALLER CM to room to meet with patient for initial transition planning/care coordination assessment. RN SHERRI introduced self and role at [facility]. Pt voices understanding and consents to assessment at this time. Pt resting in bed in no distress at this time. Pt is A/O at this time and answers all questions appropriately. Care providers, pharmacy, and demographics verified/updated at this time. PCP: Dr Bush in [place], [place] Specialists: Dr Brooks-supervisor grips in [place], [place]. Pt gets OP HD @ [facility] in [place], [place], T/TH/S. Call placed to [facility] @ [phone]. Spoke w/Rich. She is aware pt is in [place] and has been admitted to [facility]. She states pt has been getting Ancef 2 GM every T and w/Dialysis and 3 GM every Sat w/Dialysis. This started January 29 after pt was discharged from the hospital down their for infectious abscess. Dr Schroeder made aware. Preferred Pharmacy: [facility] Retail Insurance: [employer] Prescription Benefit: Yes Living Will/HPOA: Pt does not have AD. LNOK: , Elodia. Elodia is staying w/friends in [place], [place], until pt is discharged from [facility] and then they plan on returning to [place]. Living Arrangements: Lives w/Elodia in one-story home w/5 steps to enter. Pt does okay w/stairs. Independent. Transportation: Pt states drives self and states no transportation concerns at this time. also drives DME: Pt has a left leg prosthesis. He denies having other DME. HHC/SNF: No hx of either. Pt denies needs. Pt wishes to return home and states has no concerns with going home at time of discharge. CM to follow for any discharge planning/needs. Pt voices no concerns/needs at this time. Advised pt to ask for CM if any questions/concerns/needs arise. Voices understanding. PLAN: Home w/ and resumption of HD @ [facility] in [place]. Green sheet placed on chart w/instructions for Discharge instructions and summary [facility] [place] @ Natalie STORY RN, CM
[2022-02-20 12:04] LABS: Hematocrit 24.7 % (40-54); Hemoglobin 7.7 g/dL (13.0-16.5)
--- NOTE | 2022-02-20 12:13 | CON.PCM.ID_ITS ---
Assessment & Plan Assessment/Plan (1) ESRD (end stage renal disease): (2) Acute respiratory failure with hypoxia: (3) Bacteremia: PLAN: Will request micro records from [facility] in [place]. MAR being requested from dialysis center. Cont vanc/zosyn. Fever to 102.3, bcxs pending. Will follow, thank you HPI Consult Data Date of Consult: 02/20/22 HPI Narrative Reason for Consultation: bacteremia HPI Narrative: SHRUTHI HERR, is a 61 M with ESRD, recent dx permacath-related bacteremia with reported staph infection at [facility] in [place], [place]. Line was removed and replaced, has been on abx with HD on [facility] for past 2-3 weeks. He missed HD sessions while traveling, developed acute onset dyspnea. No fever, no cough, no sputun, no n/v/d. Transferred here from [place], admitted on vanc/zosyn. Feels back to normal s/p HD. Full ROS performed and neg except as noted above. PFSH Medical History Diabetes Dialysis patient Hypertension Kidney disease Non-smoker Home Medications amlodipine 10 mg tablet 10 mg PO DAILY BP 02/19/22 [History Last Taken Unknown] atorvastatin 80 mg tablet 80 mg PO QHS cholesterol 02/19/22 [History Last Taken Unknown] carvedilol 12.5 mg tablet 12.5 mg PO BID BP 02/19/22 [History Last Taken Unknown] citalopram 20 mg tablet 20 mg PO DAILY depression 02/19/22 [History Last Taken Unknown] pantoprazole 40 mg tablet,delayed release 40 mg PO DAILY stomach 02/19/22 [History Last Taken Unknown] Allergy/AdvReac Type Severity Reaction Status Date / Time No Known Allergies Allergy Verified 02/19/22 09:32 Family History (Updated 02/19/22 @ 12:[address] Breanna Neal MD) Mother No problems noted. Father Colon cancer Surgical History (Updated 02/19/22 @ 12:[address] Breanna Neal MD) S/P BKA (below knee amputation) unilateral Social History (Updated 02/19/22 @ 12:[address] Breanna Neal MD) household members: spouse Smoking Status: Never smoker alcohol intake: current substance use type: does not use Physical Exam Const alert, oriented x3 and no apparent distress General Appearance: cooperative HEENT normocephalic and head/scalp atraumatic Eyes PERRL and EOMs intact bilaterally Neck supple and No nodes Resp normal air movement and clear to auscultation bilaterally Cardio regular rate and regular rhythm GI soft to palpation, non-tender and non-distended Extremity Extremity Narrative: some edema Skin no rashes or lesions noted Neuro CN's II-XII intact bilaterally Lab / Micro Data Result Diagrams: 02/20/22 11:40 02/20/22 03:45 Labs: Laboratory Results - last 24 hr 02/20/22 03:45: WBC 6.1, RBC 2.39 L, Hgb 7.1 L, Hct 22.0 L, MCV 92.1, MCH 29.7, MCHC 32.3, RDW Std Deviation 50.4 H, RDW Coeff of Jeffery 15.0 H, Plt Count 149 L, MPV 8.8, Immature Gran % (Auto) 1.100 H, Neut % (Auto) 55.8, Lymph % (Auto) 24.5, [place] % (Auto) 17.8 H, Eos % (Auto) 0.3, Baso % (Auto) 0.5, Absolute Neuts (auto) 3.4, Absolute Lymphs (auto) 1.50, Nucleated RBC % 0 02/20/22 03:45: Sodium 134 L, Potassium 3.7, Chloride 98, Carbon Dioxide 26.0, Anion Gap 10, BUN 46 H, Creatinine 6.08 H, Estim Creat Clear Calc 13.65, Est GFR (MDRD) Af Amer 12 L, Est GFR (MDRD) Non-Af 10 L, BUN/Creatinine Ratio 7.6 L, Glucose 179 H, Calcium 7.6 L, Total Bilirubin 0.40, AST 16, ALT < 6 L, Alkaline Phosphatase 65, Total Protein 5.8 L, Albumin 2.2 L, Globulin 3.6, Albumin/Globulin Ratio 0.6 L 02/20/22 03:45: Iron 17 L, TIBC 160 L, Iron Saturation 10.6 L, Ferritin 263 02/20/22 11:40: Hgb 7.7 L, Hct 24.7 L Rhythm Strip Rhythm Strip: Sinus Rhythm Rate: 71 Ectopy: None Radiology Impression Chest X-Ray 02/19/22 18:10 IMPRESSION: 1. Right-sided airspace disease compatible with pneumonia. 2. Right central venous catheter in good position. Electronically Signed: Brayan Malik MD at 23:01 EDT ,
--- NOTE | 2022-02-20 14:13 | PN.RENAL_ITS ---
Subjective Subjective Following for ESRD Patient is resting in bed. Denies any complaints. Reports tolerated dialysis yesterday without any cramping. Denies any shortness of breath. Objective Data Objective Data Vital Signs: Vital Signs Temp Pulse Resp BP Pulse Ox O2 Del Method O2 Flow Rate 98.9 F 84 16 126/92 H 92 Nasal Cannula 3 02/20/22 08:00 02/20/22 08:00 02/20/22 08:00 02/20/22 08:00 02/20/22 08:00 02/20/22 08:00 02/20/22 08:00 FiO2 50 02/19/22 09:19 Oxygen Flow Rate (L/min) 3 Oxygen Delivery Method Nasal Cannula Weight: 90.3 kg Body Mass Index (BMI) 29.5 Intake & Output: Intake and Output for Last 24 Hours 02/18/22 02/19/22 02/20/22 23:59 23:59 23:59 Intake Total 1450 / 1450 50 / 50 Output Total 4025 / 4025 Balance -2575 / -2575 50 / 50 Lab / Micro Data Result Diagrams: 02/20/22 11:40 02/20/22 03:45 Labs: Laboratory Results - last 24 hr 02/20/22 03:45: WBC 6.1, RBC 2.39 L, Hgb 7.1 L, Hct 22.0 L, MCV 92.1, MCH 29.7, MCHC 32.3, RDW Std Deviation 50.4 H, RDW Coeff of Jeffery 15.0 H, Plt Count 149 L, MPV 8.8, Immature Gran % (Auto) 1.100 H, Neut % (Auto) 55.8, Lymph % (Auto) 24.5, [place] % (Auto) 17.8 H, Eos % (Auto) 0.3, Baso % (Auto) 0.5, Absolute Neuts (auto) 3.4, Absolute Lymphs (auto) 1.50, Nucleated RBC % 0 02/20/22 03:45: Sodium 134 L, Potassium 3.7, Chloride 98, Carbon Dioxide 26.0, Anion Gap 10, BUN 46 H, Creatinine 6.08 H, Estim Creat Clear Calc 13.65, Est GFR (MDRD) Af Amer 12 L, Est GFR (MDRD) Non-Af 10 L, BUN/Creatinine Ratio 7.6 L, Glucose 179 H, Calcium 7.6 L, Total Bilirubin 0.40, AST 16, ALT < 6 L, Alkaline Phosphatase 65, Total Protein 5.8 L, Albumin 2.2 L, Globulin 3.6, Albumin/Globulin Ratio 0.6 L 02/20/22 03:45: Iron 17 L, TIBC 160 L, Iron Saturation 10.6 L, Ferritin 263 02/20/22 11:40: Hgb 7.7 L, Hct 24.7 L Radiography Diagnostic Testing: Radiology Impression Chest X-Ray 02/19/22 18:10 IMPRESSION: 1. Right-sided airspace disease compatible with pneumonia. 2. Right central venous catheter in good position. Electronically Signed: Brayan Malik MD at 23:01 EDT , Rhythm Strip Rhythm Strip: Sinus Rhythm Rate: 71 Ectopy: None Physical Exam Narrative Const: Alert and oriented x3, in no apparent distress HEENT: Pupils equal round reactive to light, oral mucosa moist Cardio: S1, S2, RRR Respiratory: Lung sounds clear anteriorly. No wheezing, rhonchi or rales noted Extremities: No pitting edema to right leg. Left leg prosthesis in place Tunneled HD catheter right chest, dressing clean, dry and intact Assessment & Plan Assessment/Plan (1) ESRD (end stage renal disease): (2) Acute respiratory failure with hypoxia: (3) Hypertension: PLAN: Plan - ESRD, on hemodialysis in [place] on a Wednesday schedule; underwent dialysis yesterday over 3.5 hours and tolerated 4 L fluid removal. No acute indication for CHIEF STATION ENGINEER today. Plan for next dialysis tomorrow over 3.5hours with UF as pt/bp tolerates. Reviewed patient's chronic dialysis unit orders, EDW ~86-88 kg. -Anemia disease; will give Epogen with dialysis tomorrow. -Recent history of tunneled dialysis catheter related infection; patient has new tunneled HD catheter (placed in [place]) and has been receiving cefazolin 2 g Wednesday, post HD and 3 g on Wednesday post HD. He did receive cefazolin yesterday post HD. Blood cultures pending. Infectious disease is now following. Chest x-ray right-sided airspace disease compatible with pneumonia. - HTN: bps acceptable, on home meds -Acute hypoxic respiratory failure; likely from missing dialysis. Patient had been on BiPAP. Now on nasal canula. He tolerated 4 L of fluid removed with HD yesterday. Will attempt to remove fluid with dialysis tomorrow as patient/blood pressure tolerates. Apparently EDW at outpatient kidney center around 86 to 88 kg per. Today's weight 90kg. -discussed plan with discharge team
--- NOTE | 2022-02-20 15:41 | PCM.RX.CS ---
Consult Pharmacy has been consulted to manage selected antiobiotic: Vancomycin Type of Consult: Follow-up Prior Doses of Antibiotics Received/Current Regimen: received vanc 2000mg IV x1 yesterday at 21:06 Labs: Sodium 134 mmol/L (136-145) L 02/20/22 03:45 Potassium 3.7 mmol/L (3.5-5.1) 02/20/22 03:45 Chloride 98 mmol/L (98-107) 02/20/22 03:45 Carbon Dioxide 26.0 mmol/L (21.0-32.0) 02/20/22 03:45 Anion Gap 10 (5-15) 02/20/22 03:45 BUN 46 mg/dL (7-18) H 02/20/22 03:45 Creatinine 6.08 mg/dL (0.70-1.30) H 02/20/22 03:45 Est GFR (MDRD) Af Amer 12 mL/min (>60) L 02/20/22 03:45 Est GFR (MDRD) Non-Af 10 mL/min (>60) L 02/20/22 03:45 BUN/Creatinine Ratio 7.6 RATIO (10-20) L 02/20/22 03:45 Glucose 179 mg/dL (74-106) H 02/20/22 03:45 Weight used for dosin.3 kg Goal Trough: 15-20 mcg/mL Pharmacy Plan for Drug Dosing: Will give 2nd dose of vanc after the next HD session per [facility] protocol for dosing in pts on HD and that dose will be 750mg IV x1 based on the pt's weight and will be given Wednesday 02/21 after HD. Subsequent doses will be guided by pre-dialysis random vanc levels on dialysis days. The first of these will be ordered to be drawn before HD on Wednesday since the pt is on a //Wed HD schedule. Pharmacy Service will continue to monitor and adjust dosing as required. Follow-Up Labs: Trough Vancomycin - random Labs to be done on [date and time ordered]: 02/24/22 0600 pre-HD
[2022-02-20] MEDS: Atorvastatin Calcium 80 MG Tablet PO (21:34)
[2022-02-21] VITALS (13 sets, daily range): BP systolic 129–152; BP diastolic 61–77; PULSE 74–84; RESP 16–18; TEMP 36.6–37.3; O2SAT 86–95
--- NOTE | 2022-02-21 03:50 | NURSING ---
Pt placed on O2 2L NC - will monitor
[2022-02-21] MEDS: Heparin Injection (Vial) 5,000 UNIT/ML VIAL 5000 UNIT SC ×3 (06:46→23:34)
[2022-02-21 07:18] LABS: Absolute Lymphocyte Count 1.49 X10^3/uL (0.83-4.51); Absolute Neutrophil Count 2.9 X10^3/uL (2.0-7.7); Basophil# 0.05 X10^3/uL; Basophil% 0.9 % (0-1); Eosinophil# 0.15 X10^3/uL; Eosinophils% 2.7 % (0-5); Hematocrit 22.5 % (40-54); Hemoglobin 7.2 g/dL (13.0-16.5); Lymphocyte # 1.49 X10^3/ul (0.83-4.51); Lymphocyte % 27.2 % (19-41); Mean Corpuscular Hgb 29.5 pg (27.0-32.0); Mean Corpuscular Volume 92.2 fL (80-94); Mean Platelet Vol. 9.3 fl (6.2-12.0); Monocyte# 0.83 X10^3/uL; Monocyte% 15.1 % (0-10); NRBC Flagged by Analyzer 0 % (0-5); Platelet Count 174 K/mm3 (150-450); RBC Distribution Width CV 14.9 % (11.6-14.6); RBC Distribution Width SD 49.8 fl (35.1-43.9); Red Blood Count 2.44 M/mm3 (4.6-6.2); White Blood Count 5.5 K/mm3 (4.4-11.0)
[2022-02-21 07:42] LABS: ALB/GLOB Ratio 0.6 RATIO (0.9-2.4); AST(SGOT) 22 U/L (15-37); Alanine Aminotransfer ALT/SGPT < 6 U/L (16-61); Albumin, Serum 2.3 g/dL (3.2-5.0); Alkaline Phosphatase 62 U/L (45-117); Anion Gap 10 (5-15); BUN 58 mg/dL (7-18); BUN/Creat Ratio 7.5 RATIO (10-20); Calcium,Total 8.1 mg/dL (8.5-10.1); Chloride 99 mmol/L (98-107); Creatinine, Serum 7.77 mg/dL (0.70-1.30); EST Glomerular Filtration Rate 8 mL/min (>60); Est Glom Filt Rate - Afr Amer 9 mL/min (>60); Estimated Creatinine Clearance 10.68 ml/min; Globulin 3.8 g/dL (2.2-4.2); Glucose 121 mg/dL (74-106); Potassium 3.6 mmol/L (3.5-5.1); Protein, Total 6.1 g/dL (6.4-8.2); Sodium Level 135 mmol/L (136-145)
--- NOTE | 2022-02-21 08:23 | PCM.PN.INT ---
Assessment & Plan Assessment/Plan (1) Acute respiratory failure with hypoxia: (2) Missed dialysis: (3) Hypertension: PLAN: Plan RECOMMENDATIONS: 1. Defer to nephrology on repeat dialysis 2. Walking oximetry prior to discharge 3. Continue broad-spectrum antibiotics per ID 4. Hemodynamically stable on room air. Will sign off from a critical care/pulmonary perspective IMPRESSIONS: 1. Acute hypoxic respiratory failure Clinical suspicion for flash pulmonary edema secondary to accelerated hypertensive emergency secondary to lack of hemodialysis. Patient is reporting almost 5 days since his last dialysis. Patient tolerated significant fluid removal and is now on room air. However, patient does have significant infiltrates and spiked a fever to 39.1 ?C overnight yesterday. Infectious disease involved. Cultures are currently pending. Cannot exclude a concomitant pneumonia, but patient tends to minimize significance. Given patient is doing well on room air, will sign off from a pulmonary/critical care perspective. 2. End-stage renal disease with noncompliance Patient appears to be relatively new to end-stage renal disease. Patient with extended periods between dialysis sessions. Given that he is out of state, [place] neph[facility] was consulted for dialysis recommendations. No indication for aggressive therapy of hyperkalemia given lack of EKG changes and need for urgent dialysis for other reasons. Defer to nephrology on further dialysis sessions 3. Hypertension/hyperlipidemia/GERD/history of noncompliance Complicates care, management, recovery and prognosis. Okay to continue baseline medications from my perspective. Subjective Subjective Patient transferred out of the intensive care unit yesterday. No acute issues overnight. Patient states he feels fine. No acute blood loss has been reported. Patient states he is comfortable on room air at rest. Patient admits that he has not been ambulating much. Objective Data Objective Data Vital Signs: Vital Signs Temp Pulse Resp BP Pulse Ox O2 Del Method O2 Flow Rate 36.9 C 75 18 129/64 H 88 Room Air 3 02/21/22 03:30 02/21/22 07:00 02/21/22 03:30 02/21/22 03:30 02/21/22 03:30 02/21/22 08:14 02/20/22 08:00 FiO2 50 02/19/22 09:19 Oxygen Flow Rate (L/min) 3 Oxygen Delivery Method Room Air Weight: 89.8 kg Body Mass Index (BMI) 29.5 Intake & Output: Intake and Output for Last 24 Hours 02/19/22 02/20/22 02/21/22 23:59 23:59 23:59 Intake Total 1450 / 1450 100 / 300 250 / 250 Output Total 4025 / 4025 0 / 0 0 / 0 Balance -2575 / -2575 100 / 300 250 / 250 Lab / Micro Data Attestation: I reviewed the patient's lab results. Result Diagrams: 02/21/22 06:40 02/21/22 06:40 Labs: Laboratory Results - last 24 hr 02/20/22 03:45: Iron 17 L, TIBC 160 L, Iron Saturation 10.6 L, Ferritin 263 02/20/22 11:40: Hgb 7.7 L, Hct 24.7 L 02/20/22 13:25: COVID-19 (YANE) Not Detected 02/21/22 06:40: WBC 5.5, RBC 2.44 L, Hgb 7.2 L, Hct 22.5 L, MCV 92.2, MCH 29.5, MCHC 32.0, RDW Std Deviation 49.8 H, RDW Coeff of Jeffery 14.9 H, Plt Count 174, MPV 9.3, Immature Gran % (Auto) 1.100 H, Neut % (Auto) 53.0, Lymph % (Auto) 27.2, [place] % (Auto) 15.1 H, Eos % (Auto) 2.7, Baso % (Auto) 0.9, Absolute Neuts (auto) 2.9, Absolute Lymphs (auto) 1.49, Nucleated RBC % 0 02/21/22 06:40: Sodium 135 L, Potassium 3.6, Chloride 99, Carbon Dioxide 26.0, Anion Gap 10, BUN 58 H, Creatinine 7.77 H*, Estim Creat Clear Calc 10.68, Est GFR (MDRD) Af Amer 9 L, Est GFR (MDRD) Non-Af 8 L, BUN/Creatinine Ratio 7.5 L, Glucose 121 H, Calcium 8.1 L, Total Bilirubin 0.50, AST 22, ALT < 6 L, Alkaline Phosphatase 62, Total Protein 6.1 L, Albumin 2.3 L, Globulin 3.8, Albumin/Globulin Ratio 0.6 L Micro: Microbiology 02/19/22 14:20 Blood Culture (Wb) - Line Draw Blood Culture - Preliminary No growth in 48 hours. Rhythm Strip Rhythm Strip: Sinus Rhythm Rate: 71 Ectopy: None Physical Exam Const alert, oriented x3 and no apparent distress Constitutional Narrative: On room air. Appears older than stated age. General Appearance: cooperative and well developed; Negative for lethargic or ill appearing HEENT normocephalic, head/scalp atraumatic and moist oral mucous membranes Eyes PERRL and EOMs intact bilaterally Eyes Narrative: Slight scleral injection noted Neck full ROM and no lymphadenopathy Chest inspection of chest normal Chest Narrative: Right dialysis access subclavian. Slight erythema without exudate or purulence Resp normal respiratory effort and no use of accessory muscles Resp Narrative: Respiratory status significantly improved from yesterday Effort and Inspection: tachypneic Auscultation: rhonchi right upper and right lower; Negative for rales or wheezes Percussion: Negative for dullness Cardio regular rate, regular rhythm, S1 normal heart sound, S2 normal heart sound, no murmurs, no rub and no gallops GI normal to inspection, nondistended, normoactive bowel sounds no CVA tenderness Extremity no clubbing, cyanosis or edema Extremity Narrative: Right BKA Skin no rashes or lesions noted Neuro oriented x3, CN's II-XII intact bilaterally, moves all extremities and no focal motor deficits Psych cooperative and affect normal Charges/Coding Visit Charges Inpatient E&M: 10852 Subs Hosp L2
[2022-02-21] MEDS: Epoetin Alfa epbx 10,000 UNITS/ML 10000 UNIT SC (10:39)
--- NOTE | 2022-02-21 12:39 | DIALYSIS ---
Hemodialysis completed, 3.5 hours on a 3 K bath. Fluid removed was 4 liters. Post BP 152/73, 77, 17,99.2. Next HD will be Wednesday, Patient expressed that he wants to go home [facility] as he feels much better and denies SOB. He is back down to his dry weight at 87.4. Report given to Ashish CHICAS. See HD flow sheet for details.
--- NOTE | 2022-02-21 12:58 | NURSING ---
Pt completed dialysis treatment and demands to leave. Pt counseled concerning risks of leaving AMA, MD notified. Pt signed paper to leave AMA.
[2022-02-21] MEDS: Pantoprazole Sodium 40 MG Tablet PO (14:17)
[2022-02-21] MEDS: amLODIPine 10 MG Tablet PO (14:17)
[2022-02-21] MEDS: Carvedilol 12.5 MG Tablet PO ×2 (14:18→23:34)
[2022-02-21] MEDS: Citalopram 20 MG Tablet PO (14:18)
[2022-02-21] MEDS: 0.9% Saline Lock 10 ML Syringe IV (14:21)
--- NOTE | 2022-02-21 15:06 | PN.HOSP_ITS ---
Subjective Subjective Follow-up on acute respiratory failure/missed dialysis/line infection: Patient was seen and examined.?No acute events overnight. Patient was seen receiving dialysis. He expresses frustration and wants to be discharged. Objective Data Objective Data Vital Signs: Vital Signs Temp Pulse Resp BP Pulse Ox O2 Del Method O2 Flow Rate 97.9 F 79 18 145/61 H 92 Room Air 2 02/21/22 14:15 02/21/22 14:15 02/21/22 14:15 02/21/22 14:15 02/21/22 14:15 02/21/22 14:15 02/21/22 07:23 FiO2 50 02/19/22 09:19 Oxygen Flow Rate (L/min) 2 Oxygen Delivery Method Room Air Weight: 87.4 kg Body Mass Index (BMI) 29.5 Intake & Output: Intake and Output for Last 24 Hours 02/19/22 02/20/22 02/21/22 23:59 23:59 23:59 Intake Total 1450 / 1450 100 / 300 370 / 370 Output Total 4025 / 4025 0 / 0 0 / 0 Balance -2575 / -2575 100 / 300 370 / 370 Lab / Micro Data Result Diagrams: 02/21/22 06:40 02/21/22 06:40 Labs: Laboratory Results - last 24 hr 02/20/22 13:25: COVID-19 (YANE) Not Detected 02/21/22 06:40: WBC 5.5, RBC 2.44 L, Hgb 7.2 L, Hct 22.5 L, MCV 92.2, MCH 29.5, MCHC 32.0, RDW Std Deviation 49.8 H, RDW Coeff of Jeffery 14.9 H, Plt Count 174, MPV 9.3, Immature Gran % (Auto) 1.100 H, Neut % (Auto) 53.0, Lymph % (Auto) 27.2, [place] % (Auto) 15.1 H, Eos % (Auto) 2.7, Baso % (Auto) 0.9, Absolute Neuts (auto) 2.9, Absolute Lymphs (auto) 1.49, Nucleated RBC % 0 02/21/22 06:40: Sodium 135 L, Potassium 3.6, Chloride 99, Carbon Dioxide 26.0, Anion Gap 10, BUN 58 H, Creatinine 7.77 H*, Estim Creat Clear Calc 10.68, Est GFR (MDRD) Af Amer 9 L, Est GFR (MDRD) Non-Af 8 L, BUN/Creatinine Ratio 7.5 L, Glucose 121 H, Calcium 8.1 L, Total Bilirubin 0.50, AST 22, ALT < 6 L, Alkaline Phosphatase 62, Total Protein 6.1 L, Albumin 2.3 L, Globulin 3.8, Albumin/Globulin Ratio 0.6 L Micro: Microbiology 02/19/22 14:20 Blood Culture (Wb) - Line Draw Blood Culture - Preliminary No growth in 48 hours. Rhythm Strip Rhythm Strip: Sinus Rhythm Rate: 71 Ectopy: None Physical Exam Narrative Physical exam: General: Alert, Oriented x3, Cooperative, appears frail, older than stated age, on 2 L of oxygen HEENT: Atraumatic Oral: Moist Mucosa Neck: Supple Lungs: Diminished to auscultation, right-sided tunneled dialysis catheter Cardiovascular: HS I+II, regular, no murmurs Abdomen: Bowel Sounds Present, Soft, Non Tender Extremities: No edema, left BKA Skin: No rashes, No breakdown Neurological: Grossly intact Psych/Mental Status: Appropriate Assessment & Plan Assessment/Plan (1) ESRD (end stage renal disease): (2) Acute respiratory failure with hypoxia: (3) Hypertension: (4) Missed dialysis: PLAN: Plan 1. Acute hypoxic respiratory failure secondary to fluid overload secondary to missed dialysis/pneumonia Patient currently on 2 L of oxygen; off BiPAP soon after he was admitted Continue to wean off for SPO2 more than 94% Continue breathing treatments as needed, encourage use of incentive spirometer 2. ESRD on hemodialysis?Wednesday??Wednesday, Patient is back on schedule, Nephrology following 3. Pneumonia, questionable new versus old, patient is from [place], no medical records available History of recent line infection; patient supposed to be on cefazolin 2 g on Wednesday and and 3 g after Wednesday dialysis WBC count is 5.5 today. Continue on IV vancomycin and Zosyn Follow-up on blood cultures, ID consulted 4. Anemia, iron deficiency/anemia of CKD Hb is 7.2 today. Continue on oral iron 5. Hypertension, controlled Continue on amlodipine, carvedilol 6. Hyperlipidemia, continue on statin 7. Anxiety/depression, continue on Celexa 8. DVT PPx-SCDs in light of anemia of unclear etiology 9. GI ppx- continue home PPI Charges/Coding Visit Charges Inpatient E&M: 53631 Subs Hosp L2
[2022-02-21] MEDS: Ferrous Sulfate 325 MG Tablet PO (17:57)
[2022-02-21] MEDS: Atorvastatin Calcium 80 MG Tablet PO (23:34)
[2022-02-22] VITALS (7 sets, daily range): BP systolic 147; BP diastolic 64; PULSE 75–78; RESP 18; TEMP 37.1; O2SAT 87–95
--- NOTE | 2022-02-22 02:53 | NURSING ---
o2 spot check while pt asleep 87% on RA, placed on 2L 02 sats up to 93%. Pt refused nc at first, educated about the importance of having normal oxygenation. Pt agrees to wear o2 at this time.
[2022-02-22 06:17] LABS: Absolute Lymphocyte Count 1.92 X10^3/uL (0.83-4.51); Absolute Neutrophil Count 2.7 X10^3/uL (2.0-7.7); Basophil# 0.06 X10^3/uL; Eosinophil# 0.18 X10^3/uL; Eosinophils% 3.1 % (0-5); Hematocrit 23.6 % (40-54); Hemoglobin 7.4 g/dL (13.0-16.5); Lymphocyte # 1.92 X10^3/ul (0.83-4.51); Lymphocyte % 33.4 % (19-41); Mean Corp Hgb Conc 31.4 g/dL (32-36); Mean Corpuscular Hgb 28.9 pg (27.0-32.0); Mean Corpuscular Volume 92.2 fL (80-94); Mean Platelet Vol. 8.7 fl (6.2-12.0); Monocyte# 0.78 X10^3/uL; Monocyte% 13.6 % (0-10); NRBC Flagged by Analyzer 0 % (0-5); Neutrophil # 2.74 X10^3/uL (2.7-7.7); Neutrophil % 47.7 % (47-70); Platelet Count 177 K/mm3 (150-450); RBC Distribution Width CV 14.6 % (11.6-14.6); RBC Distribution Width SD 49.9 fl (35.1-43.9); Red Blood Count 2.56 M/mm3 (4.6-6.2); White Blood Count 5.8 K/mm3 (4.4-11.0)
[2022-02-22 06:58] LABS: ALB/GLOB Ratio 0.6 RATIO (0.9-2.4); AST(SGOT) 22 U/L (15-37); Alanine Aminotransfer ALT/SGPT < 6 U/L (16-61); Albumin, Serum 2.4 g/dL (3.2-5.0); Alkaline Phosphatase 63 U/L (45-117); Anion Gap 7 (5-15); BUN 34 mg/dL (7-18); BUN/Creat Ratio 6.5 RATIO (10-20); Calcium,Total 8.2 mg/dL (8.5-10.1); Chloride 101 mmol/L (98-107); Creatinine, Serum 5.26 mg/dL (0.70-1.30); EST Glomerular Filtration Rate 12 mL/min (>60); Est Glom Filt Rate - Afr Amer 14 mL/min (>60); Estimated Creatinine Clearance 15.78 ml/min; Globulin 3.7 g/dL (2.2-4.2); Glucose 119 mg/dL (74-106); Potassium 3.6 mmol/L (3.5-5.1); Protein, Total 6.1 g/dL (6.4-8.2); Sodium Level 135 mmol/L (136-145)
--- NOTE | 2022-02-22 11:01 | PCM.DC ---
Discharge Instructions Diet Discharge Diet: Renal Diet Activity Discharge Activity: Return to Normal Activity Follow Up Care Test Results: Test results from this visit will be discussed in further detail at your follow-up appointment, if applicable. Discharge Plan Admission Admit Date/Time: 02/19/22 09:29 Primary Reason for Your Visit: Acute respiratory failure/pneumonia Attending Provider: Breanna Neal Consulting Providers: Nathaniel Schroeder ; Angel Villegas ; Les Cardoso ; Bridgette Corona NP ; Merari Hallman Instructions Additional Instructions / Restrictions: Continue to take all your medications as prescribed. Follow-up with dialysis as scheduled. Follow-up with your shop superintendent and primary care doctor within 1 week. Discharge Orders/Prescriptions Prescriptions: New ferrous sulfate [FeroSul] 325 mg (65 mg iron) Tablet 325 mg PO 1200,1700 30 Days Qty: 60 0RF Continued atorvastatin 80 mg tablet 80 mg PO QHS Label Comments: TAKE 1 TABLET BY MOUTH EVERY DAY carvedilol 12.5 mg tablet 12.5 mg PO BID Label Comments: TAKE 1 TABLET BY MOUTH TWICE A DAY WITH MEALS citalopram 20 mg tablet 20 mg PO DAILY Label Comments: TAKE 1 TABLET BY MOUTH EVERY DAY amlodipine 10 mg tablet 10 mg PO DAILY pantoprazole 40 mg tablet,delayed release (DR/EC) 40 mg PO DAILY Label Comments: TAKE 1 TAB BY MOUTH TWICE DAILY BEFORE MEALS. Disposition Disposition (needs filled in before D/C Order can be placed): Home, Self Care
--- NOTE | 2022-02-22 11:11 | DS.PCM_ITS ---
Providers Date of Admission: 02/19/22 Date of Discharge: 02/22/22 Consultations 02/19/22 09:29 Consult: Expansion Joint Finisher / Pulmonary Medicine Routine Consulting Provider: Pulmonary Medicine shane Quiles Reason for Consult: Resp failure EMERGENT Consult: No Notified: Yes Date Notified: 02/19/22 Time Notified: 09:31 Method of Notification: Verbal Consult: Nephrology Routine Consulting Provider: Merari Hallman Reason for Consult: Resp failure EMERGENT Consult: No Notified: Yes Date Notified: 02/19/22 Time Notified: 09:31 Method of Notification: Answering Service 02/20/22 07:13 Consult: Infectious Disease Routine Consulting Provider: Nathaniel Schroeder Reason for Consult: Catheter-related infection, pneumonia EMERGENT Consult: No Notified: Yes Date Notified: 02/20/22 Time Notified: 07:32 Method of Notification: Answering Service Reason For Visit: PULMONARY EDEMA,EMERGENT DIALYSIS Diagnosis Discharge Diagnosis (1) ESRD (end stage renal disease): Status: Acute Code(s): N18.6 - End stage renal disease (2) Acute respiratory failure with hypoxia: Status: Acute Code(s): J96.01 - Acute respiratory failure with hypoxia (3) Hypertension: Status: Chronic Code(s): I10 - Essential (primary) hypertension (4) Missed dialysis: Status: Acute Medications at Discharge Home Medications amlodipine 10 mg tablet 10 mg PO DAILY BP 02/19/22 atorvastatin 80 mg tablet 80 mg PO QHS cholesterol 02/19/22 carvedilol 12.5 mg tablet 12.5 mg PO BID BP 02/19/22 citalopram 20 mg tablet 20 mg PO DAILY depression 02/19/22 pantoprazole 40 mg tablet,delayed release 40 mg PO DAILY stomach 02/19/22 ferrous sulfate 325 mg (65 mg iron) tablet (FeroSul) 325 mg PO 1200,1700 30 days #60 tabs 02/22/22 Hospital Course Operations None Procedures None Summary of Care Provided Minutes Spent on Discharge: 45 Hospital Course: 61-year-old male past medical history of ESRD on hemodialysis, hypertension who is from out of state?[place] visiting in the area. Patient was supposed to have continued on dialysis and managed back. He however missed dialysis 1 day. He stated that he thought he would be okay by the time he goes back to [place] after missing dialysis a couple of days. He presented to [facility] with progressive shortness of breath. He was found to be in acute fluid overload state. He was managed on BiPAP and transferred here. Patient was soon off BiPAP and managed on nasal cannula oxygen. Nephrology was consulted and patient had an emergent dialysis. Patient has a history of recent MSSA line infection. Repeat chest x-ray showed right-sided infiltrate. Patient was started on IV vancomycin and Zosyn. Infectious disease was consulted. Blood cultures were negative. Patient received a dialysis again during this hospital stay. He was found to be off oxygen at the time of discharge. He did not require oxygen on discharge. His was at the bedside and said they were driving to [place] on the day. He was strongly recommended to follow-up with dialysis and with his primary care doctor. Physical Exam Narrative Physical exam: General: Alert, Oriented x3, Cooperative, appears frail, older than stated age, on 2 L of oxygen HEENT: Atraumatic Oral: Moist Mucosa Neck: Supple Lungs: Diminished to auscultation, right-sided tunneled dialysis catheter Cardiovascular: HS I+II, regular, no murmurs Abdomen: Bowel Sounds Present, Soft, Non Tender Extremities: No edema, left BKA Skin: No rashes, No breakdown Neurological: Grossly intact Psych/Mental Status: Appropriate Weight / BMI Weight Weight: 86.9 kg Body Mass Index (BMI) 29.5 ABG / Lab / Microbiology Data Result Diagrams: 02/22/22 05:55 02/22/22 05:55 Laboratory: Laboratory Results - last 24 hr 02/22/22 05:55: WBC 5.8, RBC 2.56 L, Hgb 7.4 L, Hct 23.6 L, MCV 92.2, MCH 28.9, MCHC 31.4 L, RDW Std Deviation 49.9 H, RDW Coeff of Jeffery 14.6, Plt Count 177, MPV 8.7, Immature Gran % (Auto) 1.200 H, Neut % (Auto) 47.7, Lymph % (Auto) 33.4, [place] % (Auto) 13.6 H, Eos % (Auto) 3.1, Baso % (Auto) 1.0, Absolute Neuts (auto) 2.7, Absolute Lymphs (auto) 1.92, Nucleated RBC % 0 02/22/22 05:55: Sodium 135 L, Potassium 3.6, Chloride 101, Carbon Dioxide 27.0, Anion Gap 7, BUN 34 H, Creatinine 5.26 H, Estim Creat Clear Calc 15.78, Est GFR (MDRD) Af Amer 14 L, Est GFR (MDRD) Non-Af 12 L, BUN/Creatinine Ratio 6.5 L, Glucose 119 H, Calcium 8.2 L, Total Bilirubin 0.50, AST 22, ALT < 6 L, Alkaline Phosphatase 63, Total Protein 6.1 L, Albumin 2.4 L, Globulin 3.7, Albumin/Globulin Ratio 0.6 L Microbiology: Microbiology 02/19/22 20:28 Blood Culture (Wb) - Left Forearm Blood Culture - Preliminary No growth in 48 hours. 02/19/22 14:20 Blood Culture (Wb) - Line Draw Blood Culture - Preliminary No growth in 48 hours. D/C Instructions Discharge Diet: Renal Diet Meaningful Use Info Meaningful Use Diagnoses (Choose all that apply): None applicable Discharge Plan Admission Admit Date/Time: 02/19/22 09:29 Primary Reason for Your Visit: Acute respiratory failure/pneumonia Attending Provider: Breanna Neal Consulting Providers: Nathaniel Schroeder ; Angel Villegas ; Les Cardoso ; Bridgette Corona DIVERSITY MANAGER ; Merari Hallman Instructions Additional Instructions / Restrictions: Continue to take all your medications as prescribed. Follow-up with dialysis as scheduled. Follow-up with your aquatic life laborer and primary care doctor within 1 week. Discharge Orders/Prescriptions Prescriptions: New ferrous sulfate [FeroSul] 325 mg (65 mg iron) Tablet 325 mg PO 1200,1700 30 Days Qty: 60 0RF Continued atorvastatin 80 mg tablet 80 mg PO QHS Label Comments: TAKE 1 TABLET BY MOUTH EVERY DAY carvedilol 12.5 mg tablet 12.5 mg PO BID Label Comments: TAKE 1 TABLET BY MOUTH TWICE A DAY WITH MEALS citalopram 20 mg tablet 20 mg PO DAILY Label Comments: TAKE 1 TABLET BY MOUTH EVERY DAY amlodipine 10 mg tablet 10 mg PO DAILY pantoprazole 40 mg tablet,delayed release (DR/EC) 40 mg PO DAILY Label Comments: TAKE 1 TAB BY MOUTH TWICE DAILY BEFORE MEALS. Disposition Disposition (needs filled in before D/C Order can be placed): Home, Self Care Charges/Coding Visit Charges Inpatient E&M: 82089 Disch Hosp
== END 2022-02-22 11:41 | disposition home or self-care (01) | DRG 640 ==
LOC: ICU 02-20 08:56 → PCU 02-20 09:22
PROVIDERS: Internal Medicine Infectious Disease; Admitting Provider Internal Medicine; Visit Provider Internal Medicine
DX: E87.70 Fluid overload, unspecified (principal); J81.0 Acute pulmonary edema; J96.01 Acute respiratory failure with hypoxia; J18.9 Pneumonia, unspecified organism; N18.6 End stage renal disease; T80.211A Bloodstream infection due to central venous catheter, initial encounter; R78.81 Bacteremia; I12.0 Hypertensive chronic kidney disease with stage 5 chronic kidney disease or end stage renal disease; T82.7XXA Infection and inflammatory reaction due to other cardiac and vascular devices, implants and grafts, initial encounter; I16.1 Hypertensive emergency; E87.2 Acidosis; E11.22 Type 2 diabetes mellitus with diabetic chronic kidney disease; E11.65 Type 2 diabetes mellitus with hyperglycemia; Z99.2 Dependence on renal dialysis; Z91.15 Patient's noncompliance with renal dialysis; D63.1 Anemia in chronic kidney disease; E78.5 Hyperlipidemia, unspecified; K21.9 Gastro-esophageal reflux disease without esophagitis; E87.5 Hyperkalemia; D50.9 Iron deficiency anemia, unspecified; F41.9 Anxiety disorder, unspecified; F32.A Depression, unspecified; Z20.822 Contact with and (suspected) exposure to COVID-19; Z79.899 Other long term (current) drug therapy
CPT/HCPCS: 36415; 71045; 80053; 80069; 82728; 83540; 83550; 85014; 85018; 85025; 87040; 87635; 90937; 94002; 94640; 94762; 99251; J7030; J7040; J7050; A4216; G0257; G0463; Q5106; U0003; U0005